=== PATIENT | female | born 1980 | race Caucasian/White ===

== ENCOUNTER 2022-12-24 10:36 | Outpatient (CLI) | payer BC, SELFPAY ==
[2022-12-24 17:17] LABS: Albumin* 4.3 g/dL (3.3-5.0)
[2022-12-24 17:18] LABS: Chloride* 106 mmol/L (96-114); Potassium* 4.1 mmol/L (3.6-5.1); Sodium* 140 mmol/L (135-149)
[2022-12-24 17:21] LABS: Alanine Aminotransferase* 23 U/L (4-35); Alkaline Phosphatase* 84 U/L (40-150); Aspartate Amino Transferase* 62 U/L (12-35); Bilirubin Total* 0.7 mg/dL (0.1-1.5); Blood Urea Nitrogen* 5 mg/dL (5-24); Carbon Dioxide* 23 mmol/L (20-32); Creatinine* 0.6 mg/dL (0.5-1.5); Estimated Glomerular Filt Rate 114 ml/min; Glucose* 94 mg/dL (60-115); Total Protein* 7.4 g/dL (6.0-8.3)
[2022-12-24 17:33] LABS: HDL Cholesterol* 129 mg/dL (>=50)
[2022-12-24 17:37] LABS: Vitamin D 25 Hydroxy* 38 ng/mL (30-80)
[2022-12-24 18:18] LABS: Cholesterol* 176 mg/dL (90-199); Triglycerides* 143 mg/dL (40-149)
[2022-12-24 18:32] LABS: LDL Cholesterol Calculated 20 mg/dL (<100)
[2022-12-24 20:48] LABS: Chlamydia DNA Amplified* NOT DETECTED (No Detected); GC DNA Amplified* NOT DETECTED (No Detected)
== END 2022-12-24 10:37 | disposition home or self-care (01) ==
PROVIDERS: PCP Family Medicine; Visit Provider Physician Assistant
DX: Z01.419 Encounter for gynecological examination (general) (routine) without abnormal findings (principal); R53.83 Other fatigue; N87.9 Dysplasia of cervix uteri, unspecified; R03.0 Elevated blood-pressure reading, without diagnosis of hypertension; R79.89 Other specified abnormal findings of blood chemistry; N91.2 Amenorrhea, unspecified; R10.2 Pelvic and perineal pain; N89.8 Other specified noninflammatory disorders of vagina; Z13.6 Encounter for screening for cardiovascular disorders
CPT/HCPCS: 80053; 80061; 82306; 84443; 87086; 87491; 87591

== ENCOUNTER 2023-01-13 12:14 | Outpatient (CLI) | payer BC, SELFPAY | END 2023-01-13 12:15 | disposition home or self-care (01) | PROVIDERS: PCP Family Medicine; Visit Provider Physician Assistant | DX: N90.7 Vulvar cyst (principal) | CPT/HCPCS: 82746 ==

== ENCOUNTER 2023-01-13 12:15 | Outpatient (CLI) | payer BC, SELFPAY ==
--- NOTE | 2023-01-13 12:15 | CRLHL7_ITS ---
For Patients: As a result of the Century Cures Act, medical imaging exams and procedure reports are released immediately into your electronic medical record. You may view this report before your referring provider. If you have questions, please contact your health care provider. INDICATION: 42 year-old female. Pelvic cramping. Irregular menses. TECHNIQUE: Transabdominal and transvaginal pelvic ultrasound. Grayscale images were acquired of the uterus and ovaries. FINDINGS: The uterus measures 9.7 x 5.4 x 5.8 cm. The uterine myometrium is somewhat heterogeneous but there is no definite discrete myometrial mass. The endometrial stripe is poorly visualized. It is measured at 13 mm but this may not be entirely accurate given its indistinct appearance. Within the lower cervical region there is a hypoechoic mass measuring 3.0 x 1.8 x 2.4 cm demonstrating increased blood flow. Visual inspection is strongly warranted. Nonvisualization of the left ovary. Normal right ovary measuring 2.4 x 1.1 x 1.6 cm. No free fluid in the cul-de-sac. IMPRESSION: 1. Vascular mass or lesion within the endocervical region. Visual inspection is warranted. 2. Indistinct endometrium. No definite myometrial mass. 3. Normal right ovary. Nonvisualization of the left ovary. Dictated by Danilo Andres MD @ 01/13/2023 3:25:24 PM (Electronically Signed)
== END 2023-01-13 12:16 | disposition home or self-care (01) ==
LOC: US 12:16
PROVIDERS: PCP Family Medicine; Visit Provider Physician Assistant
DX: R10.2 Pelvic and perineal pain (principal); N92.6 Irregular menstruation, unspecified
CPT/HCPCS: 76830; 76856; 82607; 85045

== ENCOUNTER 2023-04-29 11:35 | Outpatient (RCR) | payer BC, SELFPAY ==
[2023-04-29 12:28] LABS: Creatinine* 0.8 mg/dL (0.5-1.5); Est. Creatinine Clearance* 79.08; Estimated Glomerular Filt Rate 94 ml/min
== END 2023-10-26 23:59 | disposition home or self-care (01) ==
LOC: CCIC 11:35
PROVIDERS: PCP Family Medicine; Referring Provider Family Medicine; Visit Provider Radiology Radiation Oncology
DX: C53.9 Malignant neoplasm of cervix uteri, unspecified (principal); R79.89 Other specified abnormal findings of blood chemistry
CPT/HCPCS: 36415; 36592; 82565

== ENCOUNTER 2023-09-20 11:05 | Outpatient (CLI) | payer BC, SELFPAY | END 2023-09-20 11:06 | disposition home or self-care (01) | PROVIDERS: PCP Family Medicine; Visit Provider Family Medicine | DX: R53.83 Other fatigue (principal); R79.89 Other specified abnormal findings of blood chemistry | CPT/HCPCS: 80053; 82306; 82607; 84443; 85025 ==

== ENCOUNTER 2024-05-29 13:36 | Outpatient (CLI) | payer BC, SELFPAY ==
--- OUTSIDE RECORDS SUMMARY | 2024-05-29 13:39 | XMS_ITS | Clinical Summary ---
Author Organization [facility] Address [address] [place] [address] Care Team Providers Care Photographer'S Assistant Name Role Phone Brian Duffy P.A.-C., P.A. Primary Care Pr ovider Source Comments Patient records contain information from all sites at [facility]. For routine questions regarding patient records, call [phone] during business hours, M-F 8:00 AM - 5:00 PM Central Time. Record requests for emergency care only can be directed to [phone] at any time.[facility] Allergies No known active allergies Medications Medication Sig Dispensed Refills Start Date End Date Status LORazepam (ATIVAN) 0.5 mg tablet Take 1 tablet (0.5 mg total) by mouth 2 (two) times a day as needed for anxiety. 30 tablet 04/03/2019 Active fluconazole (DIFLUCAN) 150 mg tablet TAKE 1 TABLET (150 MG TOTAL) BY MOUTH ONCE FOR 1 DOSE. REPEAT IN 7 DAYS IF SYMPTOMS PERSIST. 2 tablet 06/30/2020 Active oxybutynin (DITROPAN) 5 mg tablet Take 1 tablet (5 mg total) by mouth daily. 90 tablet 3 07/24/2020 Active amphetamine-dextroa mphetamine (Adderall XR) 20 mg 24 hr capsule Take 1 capsule (20 mg total) by mouth daily. 30 capsule 08/23/2020 Active amphetamine-dextroa mphetamine (Adderall XR) 20 mg 24 hr capsule Take 1 capsule (20 mg total) by mouth daily. 30 capsule 09/22/2020 Active amphetamine-dextroa mphetamine (Adderall XR) 20 mg 24 hr capsule Take 1 capsule (20 mg total) by mouth daily. 30 capsule 10/23/2020 Active amphetamine-dextroa mphetamine (Adderall XR) 20 mg 24 hr capsule Take 1 capsule (20 mg total) by mouth daily. 30 capsule 11/22/2020 Active amphetamine-dextroa mphetamine (Adderall XR) 20 mg 24 hr capsule Take 1 capsule (20 mg total) by mouth daily. 30 capsule 12/22/2020 Active amphetamine-dextroa mphetamine (Adderall XR) 20 mg 24 hr capsule Take 1 capsule (20 mg total) by mouth daily. 30 capsule 04/08/2021 Active fluconazole (DIFLUCAN) 150 mg tablet Take 1 tablet (150 mg total) by mouth See Admin Instructions. Take one tab now. Repeat in 7 days if symptoms persist. 2 tablet 07/17/2021 Active fluticasone propionate (FLONASE) 50 mcg/actuation nasal spray 2 SPRAYS IN EACH NOSTRIL DAILY 16 g 11 03/29/2022 Active fluticasone propionate (FLONASE) 50 mcg/actuation nasal spray Administer 2 sprays into each nostril daily. 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 Screening Lipid 03/05/2024 Clinical Communication Department of Family Medicine, [facility], in [place] [address] [address] [facility] [place] [address] Brian Duffy P.A.-C., P.A. Health Maintenance from Last 3 Months Immunizations Name Administration Dates Next Due HepA Adult 11/26/2015,04/29/2015 HepB (discontinued) adolesce nt/high risk 11/26/2015,04/29/2015 Influenza, Seasonal, Injectable 09/05/2007 MMR 04/02/1981 PPSV23 07/24/2020(Deferred: Patient Ref used) Polio, Unspecified 07/17/1981 Td (Adult), adsorbed 05/27/1997 Td, (Adult) Unspecified 11/16/2006 Tdap 11/26/2015,11/16/2006 Family History Medical History Relation Name Comments Hypertension Father Pituitary tumor Father Prostate cancer Father Bladder Mother Probable sling procedure Hysterectomy Mother Secondary to bl eeding Relation Name Status Comments Father Mother Social History Tobacco Use Types Packs/Day Years Used Date Smoking Tobacco: Every Day Cigarettes 1 18 Smokeless Tobacco: Never Tobacco Cessation:Ready to Q uit: Not Asked; Counseling Given: Not Answered Alcohol Use Standard Drinks/Week Comments Yes 0 (1 standard drink = 0.6 oz pur e alcohol) Occasional Humiliation, Afraid, Rape, and Kick questionnair e Answer Date Recorded Within the last year, have y ou been afraid of your partner or ex-partner? No 05/20/2023 Within the last year, have y ou been humiliated or emotionally abused in other ways by your partner or ex-partner? No Within the last year, have y ou been kicked, hit, slapped, or otherwise physically hurt by your partner or ex-partner? No 05/20/2023 Within the last year, have y ou been raped or forced to have any kind of sexual activity by your partner or ex-partner? No 05/20/2023 Social Connection and Isolat ion Panel [NHANES] Answer Date Recorded In a typical week, how many times do you talk on the phone with family, friends, or neighbors? More than three times a week 07/24/2020 How often do you get togethe r with friends or relatives? Three times a week 07/24/2020 How often do you attend chur ch or quaker services? Never 07/24/2020 Do you belong to any clubs o r organizations such as religious groups, unions, fraternal or athletic groups, or school groups? No 07/24/2020 How often do you attend meet ings of the clubs or organizations you belong to? Never 07/24/2020 Are you , , di vorced, , never , or living with a partner? Never 07/24/2020 AUDIT-C Answer Date Recorded Frequency of Alcohol Consumption Not on file 07/24/2020 Q2: How many drinks containi ng alcohol do you have on a typical day when you are drinking? 1 or 2 07/24/2020 Q3: How often do you have si x or more drinks on one occasion? Monthly 07/24/2020 Overall Financial Resource Strain (CARDIA) Answe r Date Recorded How hard is it for you to pa y for the very basics like food, housing, medical care, and heating? Somewhat hard 05/20/2023 PHQ-2 Answer Date Recorded PHQ-2 Score 0 07/24/2020 [facility] - Occupational Stress Questionnaire Answer Date Recorded Do you feel stress - tense, restless, nervous, or anxious, or unable to sleep at night because your mind is troubled all the time - these days? Only a little 07/24/2020 Exercise Vital Sign Answer Date Recorde d On average, how many days pe r week do you engage in moderate to strenuous exercise (like a brisk walk)? 0 days Minutes of Exercise per Session Not on file 05/20/2023 Hunger Vital Sign Answer Date Recorded Within the past 12 months, y ou worried that your food would run out before you got the money to buy more. Sometimes true Within the past 12 months, t he food you bought just didn't last and you didn't have money to get more. Sometimes true 05/2023 PRAPARE - Transportation Answer Date Re corded In the past 12 months, has l ack of transportation kept you from medical appointments or from getting medications? Yes 05/2023 In the past 12 months, has l ack of transportation kept you from meetings, work, or from getting things needed for daily living? No 05/20/2023 Nutrition Answer Date Recorded Nutrition: EVOO Fat Source Unknown 05/20 On average, how many serving s of fruits and vegetables do you eat per day (serving size is equal to 1 cup or approximately the size of a tennis ball)? 0-2 05/20/2023 Dental Answer Date Recorded Dental: Regular Dentist No 11/11/20 Employment Answer Date Recorded Employment status Unemployed/not in th e paid workforce but seeking employment 05/20/2023 Housing Stability Answer Date Recorded What is your living situation today? I have a [facility] [place] place to live 05/20/2023 Education Answer Date Recorded What is the highest level of school you have completed or the highest degree you have received? GED or equivalent 08/2020 Sex and Gender Information Value Date Recorded Sex Assigned at Female 09/30/2017 10:18 AM HYDROMETEOROLOGICAL TECHNICIAN Gender Identity Female 09/30/2017 10:18 AM HYDROMETEOROLOGICAL TECHNICIAN Sexual Orientation Straight 09/30/2017 10 :18 AM HYDROMETEOROLOGICAL TECHNICIAN Last Filed Vital Signs Vital Sign Reading Time Taken Comments Blood Pressure 119/61 04/29/2023 12:18 PM CDT Pulse 81 04/29/2023 12:18 PM CDT Temperature 36.6 ??C (97.9 ??F) 04/29/2023 12:18 PM C DT Respiratory Rate 18 07/24/2020 1:50 PM CDT Oxygen Saturation 100% 08/06/2019 11:25 AM CDT Inhaled Oxygen Concentration - - Weight 56.7 kg (125 lb) 04/29/2023 2:10 PM CDT Height 167 cm (5' 5.75) 04/03/2019 3:08 PM CDT Body Mass Index 20.33 04/03/2019 3:08 PM CDT Plan of Treatment Health Maintenance Due Date Last Done Comments Colposcopy Procedure 1979 Hepatitis C Screening 1979 Mammogram 1979 COVID-19 Vaccine (#1) 1984 Zoster Vaccines (1 of 2) 1998 Hepatitis B Vaccines (3 of 3 - 19+ 3-dose series) 01/21/2016 11/26/2015, 04/29/2015 Lipid (Cholesterol) Screening 09/26/2017 09/26/2012 Cervical Cancer Screening 10/17/20202018, 10/17/2019, 02/09/2018, Additional history exists Pneumococcal vaccine (0-64 years) (2 of 2 - PCV) 07/24/2021 07/24/2020 Tobacco Cessation counseling 07/24/2021 07/24/2020 Depression Screening (Annual PHQ-2) 11/14/2023 Influenza Vaccine (#1) 2024 09/05/2007 DTaP,Tdap,and Td Vaccines (5 - Td or Tdap) 11/26/2025 11/26/2015, 11/26/2006, 11/16/2006, Additional history exists Hepatitis A Vaccines Completed 11/26/2015, 04/29/20 15 HPV Vaccines Aged Out No longer eligi ble based on patient's age to complete this topic Procedures Procedure Name Priority Date/Time Associated Diagnosis Comments THINPREP W/HPV CO-TEST SCREEN Routine 10/17/2019 1:18 PM HYDROMETEOROLOGICAL TECHNICIAN Pap Smear Examination LIPID PANEL, S Routine 09/26/2012 11:30 AM HYDROMETEOROLOGICAL TECHNICIAN from Last 3 Months or Most Recently Relevant to Health Maintenance Results * ThinPrep w/HPV Co-Test Screen (10/17/2019 1:18 PM HYDROMETEOROLOGICAL TECHNICIAN) 10/23/2019 12:03 PM HYDROMETEOROLOGICAL TECHNICIAN [facility] Report electronically signed by RADHA Tate(ASCP) I verify that I have examined all relevant slides/materials for the specimen(s) and rendered or confirmed the diagnosis. 10/23/2019 12:03 PM HYDROMETEOROLOGICAL TECHNICIAN [facility] Gross Description Received specimen in a ThinPrep vial. 10/23/2019 12:03 PM HYDROMETEOROLOGICAL TECHNICIAN [facility] Pap Test Source Cervical/Endocervi reza 10/23/2019 12:03 PM HYDROMETEOROLOGICAL TECHNICIAN [facility] Interpretation Cervical/Endocervi reza ??(ThinPrep): Satisfactory for Evaluation Endocervical/trans formation zone components absent Negative for Intraepithelial Lesion or Malignancy High Risk HPV: ??Positive Positive for High Risk HPV by nucleic acid amplification. Positive for one or more of the following High Risk HPV types: 16, 18, 31, 33, 35, 39, 45, 51, 52, 56, 58, 59, 66, and 68. HPV Type 16: ??Positive HPV Type 18/45: ??Negative 10/23/2019 12:03 PM HYDROMETEOROLOGICAL TECHNICIAN [facility] Varies (Cervix/Endocerv ix) 10/17/2019 1:18 PM HYDROMETEOROLOGICAL TECHNICIAN 10/18/2019 7:25 AM HYDROMETEOROLOGICAL TECHNICIAN Fina Haro M.D. LAB PAP PATHDX O RDERABLES [facility] [address] [place] [address], [place] [facility] [address] [place] [address] * (ABNORMAL) Lipid Panel (09/26/2012 11:30 AM HYDROMETEOROLOGICAL TECHNICIAN) Cholesterol, Total 160 0 - 200 MGDL POWERCHART HX HDL 83.0(H) 40.0 - 60.0 MGDL POWERCHART Triglycerides 210(H) 0 - 150 MGDL POWERCHART Calculated LDL 35 0 - 100 MGDL POWERCHART Blood 09/26/2012 11:3 0 AM HYDROMETEOROLOGICAL TECHNICIAN Mary Kay Kendrick APRN, C.N.P. LAB BLOOD ADD-ON POWERCHART from Last 3 Months or Most Recently Relevant to Health Maintenance Care Teams Photographer'S Assistant Relationship Specialty Start Date End Date Brian Duffy P.A.-C., P.A. PCP - General Family Medicine 05/02/20
--- OUTSIDE RECORDS SUMMARY | 2024-05-29 13:39 | XMS_ITS | Encounter Summary ---
Author Organization [facility] Address [address] [place] [address] Care Team Providers Care Canal Superintendent Name Role Phone Brian Duffy P.A.-C., P.A. Primary Care Pr ovider Encounter Details Date Type Department Care Team (Late st Contact Info) Description 03/20/2024 Orders Only [facility] PCP [facility] MNT Brian Duffy P.A.-C., P.A. [address] [place] [id number] Screening Lipid Social History Tobacco Use Types Packs/Day Years Used Date Smoking Tobacco: Every Day Cigarettes 1 18 Smokeless Tobacco: Never Alcohol Use Standard Drinks/Week Comments Yes 0 [...] often do you attend chur ch or nondenominational services? Never 07/24/2020 Do you belong to any clubs o r organizations such as sikh groups, unions, fraternal or athletic groups, or [...] Answer Date Recorded PHQ-2 Score 0 07/24/2020 [facility] - Occupational [...] Date Recorded Dental: Regular Dentist No 11/11/20 22 Employment Answer Date Recorded Employment status Unemployed/not in th e paid workforce but seeking employment 05/20/2023 Housing Stability Answer Date Recorded What is your living situation today? I have a [facility] place to live 05/20/2023 Education Answer Date Recorded What is the highest level of school you have completed or the highest degree you have received? GED or equivalent 08/2020 Sex and Gender Information Value Date Recorded Sex Assigned at Female 09/30/2017 10:18 AM BOW STAPLER Gender Identity Female 09/30/2017 10:18 AM BOW STAPLER Sexual Orientation Straight 09/30/2017 10 :18 AM BOW STAPLER documented as of this encounter Plan of Treatment Scheduled Orders Name Type Priority Associated Diagnoses Orde r Schedule Lipid Panel Lab Routine Screening Lipid Expected: 04/03/2024, Expires: 09/16/2024 documented as of this encounter Visit Diagnoses Diagnosis Screening Lipid documented in this encounter Additional Health Concerns Assessment Noted Time PHQ-9 Depression Total Score: 2 03/22/20 17 2:51 PM CDT documented as of this encounter Care Teams Canal Superintendent Relationship Specialty Start Date End Date Brian Duffy P.A.-C., P.A. PCP - General Family Medicine 05/02/20 documented as of this encounter
--- OUTSIDE RECORDS SUMMARY | 2024-05-29 13:39 | XMS_ITS | Encounter Summary ---
Author Organization [facility] Address [address] [place] [address] Care Team Providers Care Supervisor Roving Name Role Phone Brian Duffy P.A.-C., P.A. Primary Care Pr ovider Reason for Visit * Reason Onset Date Comments Health Maintenance 02/27/2024 Encounter Details Date Type Department Care Team (Latest Contact Info) Description 02/27/2024 Clinical Communication Department of Family Medicine, [facility], in [place], [place] [address] [place] [address] Brian Duffy P.A.-C., P.A. [address] [place] [address] Health Maintenance Social History Tobacco Use Types Packs/Day Years [...] 07/24/2020 How often do you attend chur or shinto services? Never 07/24/2020 Do you belong to any clubs o r organizations such as scientologist groups, unions, fraternal or athletic groups, or [...] Answer Date Recorded PHQ-2 Score 0 07/24/[facility] Answer Date Recorded [...] your living situation today? I have a [facility] place to live 05/20/2023 Education Answer Date Recorded What is the highest level of school you have completed or the highest degree you have received? GED or equivalent 08/2020 Sex and Gender Information Value Date Recorded Sex Assigned at Female 09/30/2017 10:18 AM MACHINE BASTER Gender Identity Female 09/30/2017 10:18 AM MACHINE BASTER Sexual Orientation Straight 09/30/2017 10 :18 AM MACHINE BASTER documented as of this encounter Miscellaneous Notes * Telephone Encounter - Viviana Erazo - 02/27/2024 12:54 PM CDT I reached out to the patient today via phone call and portal message and I was unable to reach the patient. This is the 1st contact by the [facility] team to schedule preventive care services. The preventive care topics I outreached about include: Cervical Cancer Screening Lipid Panel Mammogram The outcome of this communication includes: Left Message and Sent Portal Message The PHS team will contact the patient again in 1 week. Next Primary Care appointment: does not have a visit scheduled in Primary Care within the next 3 months Last appointment with their PCP: Not available Additional services offered: Sunita Gilmore Preventative Health Specialist documented in this encounter Plan of Treatment Not on file documented as of this encounter Visit Diagnoses Not on filedocumented in this encounter Additional Health Concerns Assessment Noted Time PHQ-9 Depression Total Score: 2 03/22/20 17 2:51 PM CDT documented as of this encounter Care Teams Supervisor Roving Relationship Specialty Start Date End Date Brian Duffy P.A.-C., P.A. PCP - General Family Medicine 05/02/20 documented as of this encounter
--- OUTSIDE RECORDS SUMMARY | 2024-05-29 13:39 | XMS_ITS | Encounter Summary ---
Author Organization [facility] Address [address] [place] [address] Care Team Providers Care Special Procedures Nurse Name Role Phone Brian Duffy P.A.-C., P.A. Primary Care Pr ovider Reason for Visit * Reason Onset Date Comments Health Maintenance 03/05/2024 Encounter Details Date Type Department Care Team (Latest Contact Info) Description 03/05/2024 Clinical Communication Department of Family Medicine, [facility], in [place], [place] [address] [place] [address] Brian Duffy P.A.-C., P.A. [address] [place] [address] Health Maintenance Social History Tobacco [...] How often do you attend chur or taoism services? Never 07/24/2020 Do you belong to any clubs o r organizations such as catholic groups, unions, fraternal or athletic groups, or [...] Answer Date Recorded PHQ-2 Score 0 07/24/2020 [facility] Questionnaire Answer Date [...] your living situation today? I have a [facility] place to live 05/20/2023 Education Answer Date Recorded What is the highest level of school you have completed or the highest degree you have received? GED or equivalent 08/2020 Sex and Gender Information Value Date Recorded Sex Assigned at Female 09/30/2017 10:18 AM PROGRAM COORDINATOR EXECUTIVE EDUCATION Gender Identity Female 09/30/2017 10:18 AM PROGRAM COORDINATOR EXECUTIVE EDUCATION Sexual Orientation Straight 09/30/2017 10 :18 AM PROGRAM COORDINATOR EXECUTIVE EDUCATION documented as of this encounter Miscellaneous Notes * Telephone Encounter - Viviana Erazo - 03/05/2024 9:00 AM CDT I reached out to the patient today via phone call and letter and I was unable to reach the patient.This is the 2nd contact by the PHS team to schedule preventive care services. The preventive care topics I outreached about include: Cervical Cancer Screening Lipid Panel Mammogram The outcome of this communication includes: Left Message and Sent Letter The PHS team will contact the patient again next time they're due for preventive care. Next Primary Care appointment: does not have [...] documented as of this encounter Care Teams Special Procedures Nurse Relationship Specialty Start Date End Date Brian Duffy P.A.-C., P.A. PCP - General Family Medicine 05/02/20 documented as of this encounter
--- OUTSIDE RECORDS SUMMARY | 2024-05-29 13:39 | XMS_ITS | Referral Summary ---
Author Organization [facility] Address [address] [place] [address] Care Team Providers Care Oysterman Name Role Phone Brian Duffy P.A.-C., P.A. Primary Care Pr ovider Source Comments Patient records contain information from all sites at [facility]. For routine questions regarding patient records, call [phone] during business hours, M-F 8:00 AM - 5:00 PM Central Time. Record requests for emergency care only can be directed to [phone] at any time.[facility] Encounters Date Type Department Care Team Description 03/20/2024 Orders Only [facility] MNT Brian Duffy P.A.-C., P.A. Screening Lipid 03/05/2024 Clinical Communication Department of Family Medicine, [facility], in [place], [place] [address] [place] [id number] Brian Duffy P.A.-C., P.A. Health Maintenance from Last 3 Months Allergies No known active allergies Medications Medication [...] sprays into each nostril daily. 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 Staging:Pathologic stage from 03/14/2023:FIGO Stage IB2(pT1b2, pN0(i+)(sn), cM0) - Unsigned Attention Deficit Hyperactive Disorder 9 Abuse Tobacco Smoking 04/24/2018 Immunizations Name Administration Dates Next Due HepA Adult 11/26/2015,04/29/2015 HepB (discontinued) adolesce nt/high risk 11/26/2015,04/29/2015 Influenza, Seasonal, Injectable 09/05/2007 MMR 04/02/1981 PPSV23 07/24/2020(Deferred: Patient Ref used) Polio, Unspecified 07/17/1981 Td (Adult), adsorbed 05/27/1997 Td, (Adult) Unspecified 11/16/2006 Tdap 11/26/2015,11/16/2006 Social History Tobacco Use Types Packs/Day Years [...] often do you attend chur ch or spiritism services? Never 07/24/2020 Do you belong to any clubs o r organizations such as evangelical groups, unions, fraternal or athletic groups, or [...] Answer Date Recorded PHQ-2 Score 0 07/24/2020 [facility] - Occupational Stress [...] your living situation today? I have a [facility] place to live 05/20/2023 Education Answer Date Recorded What is the highest level of school you have completed or the highest degree you have received? GED or equivalent 08/2020 Sex and Gender Information Value Date Recorded Sex Assigned at Female 09/30/2017 10:18 AM VOLUNTEER COORDINATOR Gender Identity Female 09/30/2017 10:18 AM VOLUNTEER COORDINATOR Sexual Orientation Straight 09/30/2017 10 :18 AM VOLUNTEER COORDINATOR Last Filed Vital Signs Vital Sign Reading [...] 04/03/2019 3:08 PM CDT Plan of Treatment Not on file Procedures Procedure Name Priority Date/Time Associated Diagnosis Comments THINPREP W/HPV CO-TEST SCREEN Routine 10/17/2019 1:18 PM VOLUNTEER COORDINATOR Pap Smear Examination LIPID PANEL, S Routine 09/26/2012 11:30 AM VOLUNTEER COORDINATOR from Last 3 Months or Most Recently Relevant to Health Maintenance Results * ThinPrep w/HPV Co-Test Screen (10/17/2019 1:18 PM VOLUNTEER COORDINATOR) 10/23/2019 12:03 PM VOLUNTEER COORDINATOR [facility] Report electronically signed by RADHA Tate(ASCP) I verify that I have examined all relevant slides/materials for the specimen(s) and rendered or confirmed the diagnosis. 10/23/2019 12:03 PM VOLUNTEER COORDINATOR [facility] Gross Description Received specimen in a ThinPrep vial. 10/23/2019 12:03 PM VOLUNTEER COORDINATOR [facility] Pap Test Source Cervical/Endocervi reza 10/23/2019 12:03 PM VOLUNTEER COORDINATOR [facility] Interpretation Cervical/Endocervi reza ??(ThinPrep): Satisfactory for [...] HPV Type 18/45: ??Negative 10/23/2019 12:03 PM VOLUNTEER COORDINATOR [facility] Varies (Cervix/Endocerv ix) 10/17/2019 1:18 PM VOLUNTEER COORDINATOR 10/18/2019 7:25 AM VOLUNTEER COORDINATOR Fina Haro M.D. LAB PAP PATHDX O RDERABLES [facility] [address] [place] [address], [facility] [address] [place] [id number] * (ABNORMAL) Lipid Panel (09/26/2012 11:30 AM VOLUNTEER COORDINATOR) Cholesterol, Total 160 0 - 200 MGDL POWERCHART HX HDL 83.0(H) 40.0 - 60.0 MGDL POWERCHART Triglycerides 210(H) 0 - 150 MGDL POWERCHART Calculated LDL 35 0 - 100 MGDL POWERCHART Blood 09/26/2012 11:3 0 AM VOLUNTEER COORDINATOR Mary Kay Kendrick APRN, C.N.P. LAB BLOOD ADD-ON POWERCHART from Last 3 Months or Most Recently Relevant to Health Maintenance Care Teams Oysterman Relationship Specialty Start Date End Date Brian Duffy P.A.-C., P.A. PCP - General Family Medicine 05/02/20
--- OUTSIDE RECORDS SUMMARY | 2024-05-29 13:39 | XMS_ITS | Clinical Summary ---
Author Organization [facility] Address [place], [place] [address] Care Team Providers Care Solar Installer Name Role Phone Karen Andino RN Unavailable Sharon Rico MD Unavailable Sherine Carcamo NP Unavailable Pcp, No Primary Care Provider Unavailabl e Allergies No known active allergies Medications Medication Sig Dispensed Refills Start Date End Date Status dextroamphetamine-am phetamine (ADDERALL) 10 mg tablet Take 10 mg by mouth once daily. In the afternoon 07/08/2020 Active sennosides-docusate (SENOKOT S) (8.6-50 mg) tabletIndications:Ma lignant neoplasm of cervix, unspecified site (HC) Take 1-2 Tablets by mouth 2 times daily if needed for Constipation. 30 Tablet 03/15/2023 Active nicotine 14 mg/24 hr (NICODERM; HABITROL) 14 mg/24 hr patchIndications:Tob acco use Apply 1 Patch on dry, clean, hairless skin once daily. 21 Patch 03/17/2023 Active Active Problems Problem Noted Date Diagnosed Date Cervical cancer 03/15/2023 Cancer Staging:Pathologic stage from 05/09/2023:FIGO Stage IB2(pT1b2, pN0(i+), cM0) - Signed by Sharon Rico MD on 05/09/2023 Encounters Date Type Department Care Team Description 03/29/2024 3:05 PM CDT Office Visit [facility] [address] [place] [address] Cherrie José NP Back Pain 03/29/2024 Travel from Last 3 Months Immunizations Name Administration Dates Next Due Hepatitis A (Adult) 11/26/2015,04/29/2015 Hepatitis B (Adult) 11/26/2015,04/29/2015 Influenza, IIV3 (Age >=3 years) 09/05/2007 MMR 04/02/1981 Polio Virus, Unspecified 07/17/1981 Td (Age >=7 Years) 05/27/1997 Tdap 11/26/2015,11/16/2006 Social History Tobacco Use Types Packs/Day Years Used Date Smoking Tobacco: Every Day Cigarettes Smokeless Tobacco: Never Tobacco Cessation:Ready to Q uit: Not Asked; Counseling Given: Not Answered Alcohol Use Standard Drinks/Week Comments Yes 0 (1 standard drink = 0.6 oz pur e alcohol) daily Social Connections Answer Date Recorded Frequency of Communication with Friends and Fami ly Not on file 03/14/2023 Sex and Gender Information Value Date Recorded Sex Assigned at Not on file Gender Identity Not on file Sexual Orientation Not on file Obstetrics History Last Filed Vital Signs Vital Sign Reading Time Taken Comments Blood Pressure 131/80 03/29/2024 2:59 PM CDT Pulse 88 03/29/2024 2:59 PM CDT Temperature 36.3 ??C (97.4 ??F) 03/29/2024 2:59 PM CD T Respiratory Rate 18 03/29/2024 2:59 PM CDT Oxygen Saturation 98% 03/29/2024 2:59 PM CDT Inhaled Oxygen Concentration - - Weight 52.8 kg (116 lb 4.8 oz) 03/29/2024 2:59 P M CDT Height 165.1 cm (5' 5) 03/22/2023 11:33 AM CDT Body Mass Index 19.35 03/22/2023 11:33 AM CDT Plan of Treatment Health Maintenance Due Date Last Done Comments Pneumococcal series for age 6-64 (1 of 2 - PCV) 1985 Depression screening for age 12+ 1991 HIV for age 15-65 1994 Hepatitis C screening for age 18-79 1997 COVID-19 vaccine series ( - 2022- season) 2023 BMI (ht and wt on same day) for age 18+ 03/22/2024 03/22/2023 Influenza for age 9-49 07/15/2024 09/05/2007 Tetanus booster 11/26/2025 11/26/2015, 01/2007, 05/27/1997 Pap test for age 21-65 12/24/2025 12/24/2022, 2022 Tdap Completed 11/26/2015, 11/16/2006 Procedures Procedure Name Priority Date/Time Associated Diagnosis Comments HPV THIN PREP Routine 12/24/2022 12:00 PM CAFETERIA CLERK from Last 3 Months or Most Recently Relevant to Health Maintenance Results * (ABNORMAL) HPV HIGH RISK (12/24/2022 12:00 PM CAFETERIA CLERK) TYPE 16 Positive(A) Negative 12/29/2022 4:47 PM CAFETERIA CLERK [facility] TYPE 18 Negative Negative 12/29/2022 4:47 PM CAFETERIA CLERK [facility] OTHER HIGH RISK TYPES Positive(A) Negative 12/29/2022 4:47 PM CAFETERIA CLERK [facility] Other (Cervical) 12/24/2022 12:00 PM CAFETERIA CLERK 12/28/2022 1:23 PM CAFETERIA CLERK Narrative [facility] - 12/29/2022 4:47 PM CAFETERIA CLERK Specimen is positive for HPV type 16 DNA and the DNA of any one of, or combination of, the following high risk HPV types: 31, 33, 35, 39, 45, 51, 52, 56, 58,59, 66, 68. HPV type 18 DNA was undetectable or below the pre-set threshold. Methodology: Joaquin Tg 4800 HPV Test February Swathi [facility] [address] [place] [address], from Last 3 Months or Most Recently Relevant to Health Maintenance Advance Directives * Full Code (Latest Code Status on File) Date Activated Date Inactivated Comments 03/14/2023 8:08 AM 03/14/2023 2:48 PM Question Answer Comments Code Status Discussion: Unable to Assess Preferences, Provider to review later Care Teams Solar Installer Relationship Specialty Start Date End Date Pcp, No . PCP - General 05/02/23 Karen Andino, RN [address] [place] [address] Nurse Navigator - Oncology Registered Nurse 04/26/23 Sharon Rico MD [address] [place] [address] Medical Oncologist Oncology 04/27/23 Sherine Carcamo NP [address] [place] [address] Nurse Practitioner Oncology 04/27/23
--- OUTSIDE RECORDS SUMMARY | 2024-05-29 13:39 | XMS_ITS ---
Author Organization [facility] Address [address] [place] [address] Care Team Providers Care Laundry Aide Name Role Phone Unavailable Unavailable Unavailable Surgery Details Not on file Complications Check Surgery Details section. Procedure Estimated Blood Loss Check Surgery Details section. Procedure Findings Check Surgery Details section. Procedure Specimens Taken Check Surgery Details section.
== END 2024-05-29 13:37 | disposition home or self-care (01) ==
PROVIDERS: PCP Family Medicine; Visit Provider Family Medicine
DX: R79.89 Other specified abnormal findings of blood chemistry (principal); Z13.9 Encounter for screening, unspecified
CPT/HCPCS: 80048; 80076; 85025